=== PATIENT | female | born 1970 | race Caucasian/White ===

== ENCOUNTER 2017-02-14 08:19 | Day surgery (SDC) | payer BC, OTHER ==
[2017-02-14] MEDS ORDERED: FENTANYL 100MCG/2ML SOL ONE (09:24)
[2017-02-14] MEDS ORDERED: PROPOFOL 500 MG/50 ML EMU IV ONE (09:24)
[2017-02-14 10:22] VITALS: BP 114/73; PULSE 75; RESP 18; TEMP 97.8; O2SAT 95
== END 2017-02-14 10:55 | disposition home or self-care (01) ==
LOC: SURG 08:19
PROVIDERS: ATTEND Surgery
DX: Z83.71 Family history of colonic polyps (principal)
CPT/HCPCS: 45378; J2704; J3010